=== PATIENT | female | born 1995 | race Caucasian/White ===

== ENCOUNTER → 2024-07-14 15:32 | Outpatient (CLI) | payer OTHER, SELFPAY ==
--- NOTE | 2024-07-14 15:33 | DI.RAD.S_ITS ---
PROCEDURE: XR CHEST 2V INDICATIONS: Cough TECHNIQUE: 2 views of the chest were acquired. COMPARISON: None. FINDINGS: Surgical changes and devices: None. Lungs and pleura: Lungs are clear. No pleural effusions or pneumothorax. Mediastinum: Mediastinal contours are normal. Heart size is normal. Bones and chest wall: No suspicious bony abnormalities. Soft tissues appear unremarkable. IMPRESSION: No acute cardiopulmonary abnormality is seen. Dictated by: Chapito Sadler M.D. on 07/14/2024 at 16:11 Approved by: Chapito Sadler M.D. on 07/14/2024 at 16:11
== END ==
LOC: RAD 15:33
PROVIDERS: Referring Provider Nurse Practitioner Family; Visit Provider Nurse Practitioner Family
DX: R05.9 Cough, unspecified (principal)
CPT/HCPCS: 71046